=== PATIENT | male | born 1955 | race Caucasian/White ===

== ENCOUNTER 2023-02-11 11:58 | Day surgery (SDC) | payer BC, MEDICARE ==
[2023-02-08 10:31] LABS: BASOPHILS # (AUTO) 0.1 X10'3 (0-0.2); BASOPHILS % (AUTO) 0.5 % (0-1); EOSINOPHILS # (AUTO) 0.1 X10'3 (0-0.9); EOSINOPHILS % (AUTO) 0.9 % (0-6); HEMATOCRIT 42.8 % (42.0-52.0); HEMOGLOBIN 14.5 g/dl (14.0-17.9); LYMPHOCYTES # (AUTO) 1.2 X10'3 (1.1-4.8); MEAN CORPUSCULAR HEMOGLOBIN 32.1 PG (27.0-31.0); MEAN CORPUSCULAR VOLUME 94.6 FL (78-98); MEAN PLATELET VOLUME 10.2 FL (7.4-10.4); MONOCYTES # (AUTO) 0.9 X10'3 (0-0.9); MONOCYTES % (AUTO) 9.9 % (2-12); NEUTROPHILS # (AUTO) 7.1 X10'3 (1.8-7.7); NEUTROPHILS % (AUTO) 75.7 % (42-75); PLATELET COUNT 213 X10'3 (140-440); RED BLOOD COUNT 4.52 X10'6 (4.70-6.10); RED CELL DISTRIBUTION WIDTH 13.1 % (11.5-14.5); WHITE BLOOD COUNT 9.3 X10'3 (4.5-11.0)
[2023-02-08 10:36] LABS: ALBUMIN 3.6 G/DL (3.4-5.0); ANION GAP 7 (8-16); BLOOD UREA NITROGEN 17 MG/DL (7-18); CALCIUM 8.6 MG/DL (8.5-10.1); CHLORIDE 106 MMOL/L (99-107); GLUCOSE 104 MG/DL (70-104); POTASSIUM 4.1 MMOL/L (3.5-5.1); SODIUM 139 MMOL/L (135-145); TOTAL CARBON DIOXIDE 26.5 MMOL/L (24-32); eGFR 75 ML/MIN
[2023-02-08 10:41] LABS: APTT 31 SECONDS (22-32)
[2023-02-11] VITALS (11 sets, daily range): BP systolic 131–163; BP diastolic 71–90
[~2023-02-11] VITALS: Ht 170.2 cm; Wt 86.4 kg
[~2023-02-11 11:58] MED LIST: APIX5TAB3 PO; ASPI81TA53 PO; ATOR40TA71 PO; CEPH-585 PO; LISI10TA27 PO; METO-384 PO; NITR0.4T51 SL; TICA90TA PO
[2023-02-11] MEDS ORDERED: diphenhydrAMINE 25mg capsule PO PRN (12:15)
[2023-02-11] MEDS ORDERED: normal saline 1,000 ML IV SCH (12:15)
[2023-02-11] MEDS ORDERED: LORazepam 0.5 MG tablet PO PRN (12:15)
[2023-02-11] MEDS ORDERED: nitroGLYCERIN-Tridil 50MG/D5W 250 ML IV ONE (13:22)
[2023-02-11] MEDS ORDERED: LIDOcaine 1% (10mg/ml) 2ml vial ONE (13:22)
[2023-02-11] MEDS ORDERED: verapamil 2.5 mg/ml inj IV ONE (13:22)
[2023-02-11] MEDS ORDERED: midazolam 1 mg/ML 2ml injection ONE (13:23)
[2023-02-11] MEDS ORDERED: iohexol 350MG/ML 100ml bottle IV ONE ×2 (13:23→14:41)
[2023-02-11] MEDS ORDERED: heparin 1,000unit/ml 10ml vial 10 ML ONE (13:23)
[2023-02-11] MEDS ORDERED: fentaNYL/PF 50MCG/1 ML 2ML syringe ONE (13:23)
[2023-02-11] MEDS ORDERED: iohexol 350 MG/ML 50ML vial IV ONE (13:23)
[2023-02-11] MEDS ORDERED: APIX5TAB3 PO (13:42)
[2023-02-11] MEDS ORDERED: TICA90TA PO (13:42)
[2023-02-11] MEDS ORDERED: NITR0.4T51 SL (13:42)
[2023-02-11] MEDS ORDERED: LISI10TA27 PO (13:42)
[2023-02-11] MEDS ORDERED: ATOR40TA PO (13:42)
[2023-02-11] MEDS ORDERED: METO-384 PO (13:42)
[2023-02-11] MEDS ORDERED: ASPI-611 PO (13:42)
[2023-02-11] MEDS ORDERED: heparin 25,000 UNIT/250ml bag 250 ML IV ONE (14:27)
[2023-02-11] MEDS ORDERED: ticagrelor 90mg tablet ONE (15:39)
--- NOTE | 2023-02-11 16:45 | NUR ---
Pt ambulated to bathroom to void and then back to [facility].
--- NOTE | 2023-02-11 19:50 | NUR ---
Pt ambulated to bathroom to void then back to [facility].
== END 2023-02-11 20:20 | disposition home or self-care (01) ==
LOC: SSTAY O 11:58
PROVIDERS: ATTEND Internal Medicine Cardiovascular Disease
DX: I25.10 Atherosclerotic heart disease of native coronary artery without angina pectoris (principal); I10 Essential (primary) hypertension; E78.5 Hyperlipidemia, unspecified; I25.2 Old myocardial infarction; I48.0 Paroxysmal atrial fibrillation; Z79.82 Long term (current) use of aspirin; Z79.01 Long term (current) use of anticoagulants; Z79.899 Other long term (current) drug therapy; Z95.5 Presence of coronary angioplasty implant and graft; Z82.49 Family history of ischemic heart disease and other diseases of the circulatory system
CPT/HCPCS: 36415; 76937; 80048; 85025; 85347; 85610; 85730; 92920; 93005; 93458; 99152; 99153; A6258; C1725; C1751; C1769; C1874; C9600; J1644; J2250; J3010; J3490; J7030; Q9967; A6402; C1894

== ENCOUNTER 2023-09-19 08:59 | Day surgery (SDC) | payer BC, MEDICARE ==
[2023-09-18 11:25] LABS: BASOPHILS % (AUTO) 0.5 % (0-1); EOSINOPHILS # (AUTO) 0.1 X10'3 (0-0.9); EOSINOPHILS % (AUTO) 1.2 % (0-6); HEMATOCRIT 45.3 % (42.0-52.0); HEMOGLOBIN 15.2 g/dl (14.0-17.9); LYMPHOCYTES # (AUTO) 1.4 X10'3 (1.1-4.8); LYMPHOCYTES % (AUTO) 15.2 % (21-51); MEAN CORPUSCULAR HEMOGLOBIN 32.4 PG (27.0-31.0); MEAN CORPUSCULAR HGB CONC 33.6 g/dL (33.0-36.5); MEAN CORPUSCULAR VOLUME 96.4 FL (78-98); MEAN PLATELET VOLUME 11.3 FL (7.4-10.4); MONOCYTES % (AUTO) 11.3 % (2-12); NEUTROPHILS # (AUTO) 6.6 X10'3 (1.8-7.7); NEUTROPHILS % (AUTO) 71.8 % (42-75); PLATELET COUNT 166 X10'3 (140-440); RED CELL DISTRIBUTION WIDTH 13.8 % (11.5-14.5); WHITE BLOOD COUNT 9.2 X10'3 (4.5-11.0)
[2023-09-18 11:30] LABS: ALBUMIN 3.7 G/DL (3.4-5.0); ANION GAP 4 (8-16); BLOOD UREA NITROGEN 15 MG/DL (7-18); CALCIUM 8.9 MG/DL (8.5-10.1); CHLORIDE 106 MMOL/L (99-107); GLUCOSE 107 MG/DL (70-104); POTASSIUM 4.5 MMOL/L (3.5-5.1); SODIUM 136 MMOL/L (135-145); TOTAL CARBON DIOXIDE 25.7 MMOL/L (24-32); eGFR 74 ML/MIN
[2023-09-18 11:35] LABS: APTT 27 SECONDS (22-32); PROTHROMBIN TIME 10.5 SECONDS (9.0-12.0)
[2023-09-18 14:42] LABS: LARGE PLATELETS FEW; PLATELET ESTIMATE NORMAL
[2023-09-19] VITALS (15 sets, daily range): BP systolic 111–154; BP diastolic 66–103; PULSE 60–69; RESP 11–22; TEMP 97.7; O2SAT 92–97
[~2023-09-19] VITALS: Ht 170.2 cm; Wt 88.4 kg
[~2023-09-19 08:59] MED LIST changes: +ASPI-611 PO; -ASPI81TA53 PO; +ATOR40TA PO; -ATOR40TA71 PO; -CEPH-585 PO
[2023-09-19] MEDS ORDERED: LORazepam 0.5 MG tablet PO PRN (09:20)
[2023-09-19] MEDS ORDERED: diphenhydrAMINE 25mg capsule PO PRN (09:20)
[2023-09-19] MEDS ORDERED: normal saline 1,000 ML IV SCH (09:20)
[2023-09-19] MEDS ORDERED: iohexol 350 MG/ML 50ML vial IV ONE (09:24)
[2023-09-19] MEDS ORDERED: midazolam 1 mg/ML 2ml injection ONE (09:24)
[2023-09-19] MEDS ORDERED: iohexol 350MG/ML 100ml bottle IV ONE ×2 (09:24→11:12)
[2023-09-19] MEDS ORDERED: LIDOcaine 1% 30ml preserv. free vial ONE (09:24)
[2023-09-19] MEDS ORDERED: fentaNYL/PF 50MCG/1 ML 2ML syringe ONE (09:24)
[2023-09-19] MEDS ORDERED: heparin 1,000unit/ml 10ml vial 10 ML ONE (09:24)
[2023-09-19] MEDS ORDERED: nitroGLYCERIN 500mcg/5mL D5W 5 ML IV ONE (09:25)
[2023-09-19] MEDS ORDERED: ISOS60TA71 PO (09:51)
[2023-09-19] MEDS ORDERED: METO-384 PO (09:51)
[2023-09-19] MEDS ORDERED: heparin 25,000 UNIT/250ml bag 0 ML IV ONE (10:57)
[2023-09-19] MEDS ORDERED: normal saline 1000ml 1,000 ML IV SCH (12:10)
[2023-09-19] MEDS ORDERED: HYDROcodone/acetaminophen 5mg/325mg tablet PO PRN (12:10)
[2023-09-19] MEDS ORDERED: nitroGLYCERIN 0.4mg SUBLingual tab SL PRN (12:10)
[2023-09-19] MEDS ORDERED: HYDROcodone/acetaminophen 10/325mg tab PO PRN (12:10)
[2023-09-19] MEDS ORDERED: ticagrelor 90mg tablet PO SCH (20:00)
[2023-09-20] MEDS ORDERED: isosorbide mononitrate 30mg tab.SR.24H PO SCH (08:00)
[2023-09-20] MEDS ORDERED: atorvastatin 20mg tablet PO SCH (08:00)
[2023-09-20] MEDS ORDERED: aspirin 81mg, enteric-coated 1 TAB TABLET.DR PO SCH (08:00)
[2023-09-20] MEDS ORDERED: metoprolol succinate 25mg (24-HOUR) SR. Tablet PO SCH (08:00)
[2023-09-20] MEDS ORDERED: lisinopril 5mg tablet PO SCH (08:00)
== END 2023-09-19 16:35 | disposition home or self-care (01) ==
LOC: RAD 08:59 → SSTAY O 16:35
PROVIDERS: ATTEND Internal Medicine Cardiovascular Disease
DX: I25.10 Atherosclerotic heart disease of native coronary artery without angina pectoris (principal); I10 Essential (primary) hypertension; E78.5 Hyperlipidemia, unspecified; I25.2 Old myocardial infarction; I48.0 Paroxysmal atrial fibrillation; Z79.899 Other long term (current) drug therapy; Z79.82 Long term (current) use of aspirin; Z95.5 Presence of coronary angioplasty implant and graft; Z82.49 Family history of ischemic heart disease and other diseases of the circulatory system
CPT/HCPCS: 36415; 76937; 80048; 85025; 85610; 85730; 93005; 93459; 99152; 99153; J1644; J2250; J3010; J3490; J7030; Q0163; Q9967; 85008; 93458; A6258; C1725; C1760

== ENCOUNTER 2023-10-14 05:34 | Inpatient (IN) | payer BC, MEDICARE ==
[2023-10-07 14:40] LABS: BASOPHILS % (AUTO) 0.4 % (0-1); EOSINOPHILS # (AUTO) 0.1 X10'3 (0-0.9); EOSINOPHILS % (AUTO) 1.2 % (0-6); LYMPHOCYTES # (AUTO) 1.5 X10'3 (1.1-4.8); LYMPHOCYTES % (AUTO) 14.9 % (21-51); MEAN CORPUSCULAR HEMOGLOBIN 32.2 PG (27.0-31.0); MEAN CORPUSCULAR HGB CONC 33.4 g/dL (33.0-36.5); MEAN CORPUSCULAR VOLUME 96.4 FL (78-98); MEAN PLATELET VOLUME 11.2 FL (7.4-10.4); MONOCYTES % (AUTO) 9.8 % (2-12); NEUTROPHILS # (AUTO) 7.3 X10'3 (1.8-7.7); NEUTROPHILS % (AUTO) 73.7 % (42-75); PRE OP HEMATOCRIT 46.9 % (42.0-52.0); PRE OP HEMOGLOBIN 15.7 g/dL (14.0-17.9); PRE OP PLATELET COUNT 178 X10'3 (140-440); PRE OP WHITE BLOOD COUNT 9.9 10'3 (4.8-10.8); RED BLOOD COUNT 4.86 X10'6 (4.70-6.10); RED CELL DISTRIBUTION WIDTH 13.6 % (11.5-14.5)
[2023-10-07 14:44] LABS: BILIRUBIN,URINE NEGATIVE (Neg); CLARITY,URINE CLEAR (Clear); COLOR,URINE YELLOW (Yellow); GLUCOSE, URINE NEGATIVE (Neg); KETONES,URINE NEGATIVE (Neg); LEUKOCYTE ESTERASE ,URINE TRACE (Neg); NITRITES, URINE NEGATIVE (Neg); OCCULT BLOOD,URINE NEGATIVE (Neg); PH,URINE 5.5 (4.8-8.0); PROTEIN,URINE NEGATIVE (Neg); UROBILINOGEN,URINE 0.2 E.U/dL (0.2-1.0)
[2023-10-07 14:51] LABS: UA COLLECTION TYPE VOIDED
[2023-10-07 14:51] LABS: HEMOGLOBIN A1C 5.2 % (4.5-6.2)
[2023-10-07 14:56] LABS: RBC,URINE 0-2 /HPF (0-2)
[2023-10-07 14:57] LABS: BACTERIA,URINE FEW /HPF (Neg); MUCUS STRANDS MODERATE /LPF (Neg); SQUAMOUS EPITHELIAL CELL,UR FEW /LPF (FEW)
[2023-10-07 15:03] LABS: PRE OP PROTIME 10.7 SECONDS (9.0-12.0)
[2023-10-07 15:04] LABS: ALBUMIN 3.8 G/DL (3.4-5.0); ALBUMIN/GLOBULIN RATIO 1.1 (1.1-1.5); ALKALINE PHOSPHATASE 89 IU/L (46-116); BLOOD UREA NITROGEN 17 MG/DL (7-18); BUN/CREATININE RATIO 15.5 (10.0-20.0); CALCIUM 8.9 MG/DL (8.5-10.1); CHLORIDE 104 MMOL/L (99-107); PRE OP ALT 47 U/L (30-65); PRE OP ANION GAP 5 (8-16); PRE OP AST 22 U/L (10-37); PRE OP GLUCOSE 102 MG/DL (70-104); PRE OP POTASSIUM 4.1 MMOL/L (3.4-5.1); PRE OP SODIUM 135 MMOL/L (135-145); TOTAL CARBON DIOXIDE 25.7 MMOL/L (24-32); TOTAL PROTEIN 7.2 G/DL (6.4-8.2); eGFR 67 ML/MIN
[2023-10-07 15:23] LABS: ABG HCO3 20.2 mmol/L (22.0-26.0); ABG OXYGEN SATURATION 97.6 % (94-97); ABG PCO2 (T) 28.6 mmHg (35.0-48.0); ABG PH (T) 7.467 (7.340-7.440); ABG PO2 (T) 91.5 mmHg (75.0-100.0); ALLEN'S TEST POSITIVE; FCOHb 0.3 % (0.0-3.9); FHHb 2.4 % (0.0-5.0); FMetHb 0.3 % (0.0-1.5); PATIENT TEMPERATURE 36.9; TOTAL HEMOGLOBIN 16.5 G/dl (14.0-17.9)
[2023-10-14] VITALS (19 sets, daily range): BP systolic 102–153; BP diastolic 49–90; PULSE 54–84; RESP 14–30; TEMP 98.4; O2SAT 93–97
[~2023-10-14] VITALS: Ht 170.2 cm; Wt 87.9 kg
[~2023-10-14 05:34] MED LIST changes: -APIX5TAB3 PO; +DOCUMENT DATE & TIME OF BETA-BLOCKER PO ONE; +ISOS60TA71 PO; +Insulin Reg/NS 100units/100mL 100 ML IV SCH; +LORazepam 2 mg/ml vial IV ONE; +UBID100C16 PO; +cefazolin 2gm/D5W 100mL 100 ML IV ONE; +dextrose 50%-water 50ml dispensing syringe IV PRN; +famotidine 20mg tablet PO ONE; +insulin Lispro (HumaLOG) vial - multi-dose SQ PRN; +metoprolol tartrate 12.5mg (1/2 tablet) PO ONE; +mupirocin 2% nasal ointment 1gm UD NS ONE; +ringers solution, lacted 1,000 ML IV SCH; +vancomycin 1,500 MG in NS 300ml IV soln IV ONE
[2023-10-14] MEDS ORDERED: heparin 10,000 units/1 ML INJ ONE ×2 (06:23→12:00)
[2023-10-14] MEDS ORDERED: ceFAZolin 1000mg inj ONE (06:23)
[2023-10-14] MEDS ORDERED: BUPIVAcaine 2.5mg/ml inj 50ml vial (contains preservative) ONE (06:23)
[2023-10-14] MEDS ORDERED: epiNEPHrine 1 mg/ml inj ONE (06:28)
[2023-10-14] MEDS ORDERED: BUPIVAcaine 0.5% inj/PF 30 ML ONE ×2 (06:50→09:26)
[2023-10-14] MEDS ORDERED: rocuronium 10mg/ml inj IV ONE ×3 (07:46→07:51)
[2023-10-14] MEDS ORDERED: propofol inj 20 ML IV ONE (07:46)
[2023-10-14] MEDS ORDERED: SUfentanil 50mcg/ml 1ml amp IV ONE (07:46)
[2023-10-14] MEDS ORDERED: MIDAZolam 1 MG/ML 5ML VIAL ONE (07:46)
[2023-10-14] MEDS ORDERED: protamine sulf. 10mg/ml inj. IV ONE (07:51)
[2023-10-14] MEDS ORDERED: nitroGLYCERIN in D5W 50mg/250ml (Tridil) infusion IV ONE (07:51)
[2023-10-14] MEDS ORDERED: aminocaproic acid 250 MG/1 ML inj. ONE ×2 (07:51→12:00)
[2023-10-14] MEDS ORDERED: sevoflurane 250ml liquid IH ONE (07:51)
[2023-10-14] MEDS ORDERED: BUPIVAcaine 0.5% inj/PF 30 ml vial IJ ONE (08:00)
[2023-10-14] MEDS ORDERED: heparin 10,000 units/1 ML INJ IR ONE (08:00)
[2023-10-14] MEDS ORDERED: ceFAZolin 1000mg inj IR ONE (08:00)
[2023-10-14] MEDS ORDERED: epiNEPHrine 1 mg/ml inj IV ONE (08:00)
[2023-10-14] MEDS ORDERED: papaverine 30 mg/ml 2ml inj. ICAR ONE (08:00)
[2023-10-14 08:51] LABS: ABG BASE EXCESS -1.2 mmol/L (-2.0-2.0); ABG HCO3 23.2 mmol/L (22.0-26.0); ABG OXYGEN SATURATION 99.2 % (94-97); ABG PCO2 37.8 mmHg (35.0-48.0); ABG PH 7.405 (7.340-7.440); ABG PO2 202.1 mmHg (75.0-100.0); CL (ABG) 105 mmol/L (99-107); FHHb 0.8 % (0.0-5.0); FO2Hb 99.2 % (94-97); GLUCOSE (ABG) 129 mg/dl (70-104); IONIZED CA (ABG) 1.13 mmol/L (1.10-1.30); K (ABG) 4.1 mmol/L (3.5-5.1); TOTAL HEMOGLOBIN 14.4 G/dl (14.0-17.9)
[2023-10-14 09:37] LABS: ACT @ 1.70 U 275 SEC (193-297); ACT @ 2.84 U 418 SEC (260-420); BASELINE ACT 160 SEC (101-148); PATIENT WEIGHT 90.0k KG
[2023-10-14 10:16] LABS: ABG BASE EXCESS -1.3 mmol/L (-2.0-2.0); ABG OXYGEN SATURATION 99.4 % (94-97); ABG PCO2 36.8 mmHg (35.0-48.0); ABG PH 7.413 (7.340-7.440); ABG PO2 349.3 mmHg (75.0-100.0); CL (ABG) 101 mmol/L (99-107); FCOHb 0.3 % (0.0-3.9); FHHb 0.6 % (0.0-5.0); FMetHb 0.3 % (0.0-1.5); FO2Hb 98.8 % (94-97); GLUCOSE (ABG) 108 mg/dl (70-104); IONIZED CA (ABG) 0.97 mmol/L (1.10-1.30); TOTAL HEMOGLOBIN 10.9 G/dl (14.0-17.9)
[2023-10-14 10:36] LABS: ABG BASE EXCESS VENOUS -2.4 mmol/L (-2.0 - 2.0); ABG HCO3 VENOUS 23.1 mmol/L (21.0-28.0); ABG OXYGEN SATURATION VENOUS 86.9 % (75 - 99 %); ABG PCO2 VENOUS 42.8 mmHg (41.0-54.0); ABG PO2 VENOUS 50.7 mmHg (25.0-35.0); CL (ABG) 102 mmol/L (99-107); FCOHb VENOUS 0.3 %; FMetHb VENOUS 0.3 % (0.0 - 0.5); FO2Hb VENOUS 86.4 %; GLUCOSE (ABG) 118 mg/dl (70-104); IONIZED CA (ABG) 1.03 mmol/L (1.10-1.30); K (ABG) 4.2 mmol/L (3.5-5.1); TOTAL HEMOGLOBIN 11.4 G/dl (14.0-17.9)
[2023-10-14 10:52] LABS: ABG BASE EXCESS 0.3 mmol/L (-2.0-2.0); ABG HCO3 24.6 mmol/L (22.0-26.0); ABG OXYGEN SATURATION 99.2 % (94-97); ABG PCO2 38.1 mmHg (35.0-48.0); ABG PH 7.427 (7.340-7.440); ABG PO2 314.4 mmHg (75.0-100.0); CL (ABG) 102 mmol/L (99-107); FCOHb 0.3 % (0.0-3.9); FHHb 0.8 % (0.0-5.0); FMetHb 0.3 % (0.0-1.5); FO2Hb 98.6 % (94-97); GLUCOSE (ABG) 118 mg/dl (70-104); IONIZED CA (ABG) 1.48 mmol/L (1.10-1.30); TOTAL HEMOGLOBIN 10.7 G/dl (14.0-17.9)
[2023-10-14 11:07] LABS: ABG BASE EXCESS VENOUS -1.4 mmol/L (-2.0 - 2.0); ABG HCO3 VENOUS 23.7 mmol/L (21.0-28.0); ABG OXYGEN SATURATION VENOUS 71.5 % (75 - 99 %); ABG PCO2 VENOUS 41.2 mmHg (41.0-54.0); ABG PH (VENOUS) 7.378 (7.310-7.450); CL (ABG) 101 mmol/L (99-107); FCOHb VENOUS 0.3 %; FHHb VENOUS 28.3 %; FMetHb VENOUS 0.3 % (0.0 - 0.5); FO2Hb VENOUS 71.1 %; GLUCOSE (ABG) 108 mg/dl (70-104); K (ABG) 4.1 mmol/L (3.5-5.1); TOTAL HEMOGLOBIN 10.8 G/dl (14.0-17.9)
[2023-10-14] MEDS ORDERED: magnesium 2GM in 50ml NS 50 ML IV PRN (11:25)
[2023-10-14] MEDS ORDERED: sodium phosphate inj. 30 MMOL in dextrose 5%-water 250 ML IV PRN (11:25)
[2023-10-14] MEDS ORDERED: potassium CL 10mEq/100ml bag 100 ML IV PRN (11:25)
[2023-10-14] MEDS: Insulin Reg/NS 100units/100mL 100 ML IV SCH (11:25)
[2023-10-14] MEDS ORDERED: sodium phosphate inj. 15 MMOL in dextrose 5%-water 250 ML IV PRN (11:25)
[2023-10-14] MEDS ORDERED: potassium Cl 40MEQ/270ML bag 250 ML IV PRN (11:25)
[2023-10-14] MEDS ORDERED: magnesium 4gm in 100ml NS 100 ML IV PRN (11:25)
[2023-10-14] MEDS ORDERED: Neutra Phos packet PO PRN (11:25)
[2023-10-14] MEDS ORDERED: morphine 2 MG/ML inj. syringe IV PRN (11:25)
[2023-10-14] MEDS ORDERED: potassium Cl 40MEQ/1/2NS 520ml 520 ML IV PRN (11:25)
[2023-10-14] MEDS ORDERED: insulin glargine (Lantus) pen - multi-dose SQ PRN (11:25)
[2023-10-14] MEDS ORDERED: bisacodyl 10mg suppository rectal RC PRN (11:25)
[2023-10-14] MEDS ORDERED: dextrose 50%-water 50ml dispensing syringe IV PRN (11:25)
[2023-10-14] MEDS ORDERED: sodium chloride 0.45% 1,000 ML IV SCH (11:25)
[2023-10-14] MEDS ORDERED: mineral oil 133ml enema RC PRN (11:25)
[2023-10-14] MEDS ORDERED: nitroGLYCERIN-Tridil 50MG/D5W 250 ML IV SCH (11:25)
[2023-10-14] MEDS ORDERED: magnesium hydroxide 30ml (MOM) UD suspension PO PRN (11:25)
[2023-10-14] MEDS ORDERED: niCARDipine-NS 40mg/200ml IVPB 200 ML IV PRN (11:25)
[2023-10-14] MEDS ORDERED: albumin (Human) 5% 250ml 250 ML IV PRN (11:25)
[2023-10-14] MEDS ORDERED: potassium Cl 20 mEq SR tablet PO PRN (11:25)
[2023-10-14] MEDS ORDERED: metoclopramide 5 mg/ml inj IV PRN (11:25)
[2023-10-14] MEDS ORDERED: acetaminophen 325mg tablet PO PRN ×2 (11:25)
[2023-10-14] MEDS ORDERED: mannitol 12.5gm/50mL VIAL IV ONE (12:00)
[2023-10-14] MEDS ORDERED: albumin (human) 25% 100 ML IV solution IV ONE (12:00)
[2023-10-14] MEDS ORDERED: LIDOcaine 2% 10ml TOPICAL JELLY (Urojet) ONE (12:00)
[2023-10-14] MEDS ORDERED: methylPREDNISolone sod. succ. 500mg inj ONE (12:00)
[2023-10-14] MEDS ORDERED: magnesium 1 GM/2 ML inj ONE (12:00)
[2023-10-14] MEDS ORDERED: sodium bicarbonate 1 mEq/ml 50ml vial IV ONE (12:00)
[2023-10-14] MEDS ORDERED: heparin 1,000 units/ml 10ml inj ONE (12:00)
[2023-10-14 12:15] LABS: ABG BASE EXCESS 1.1 mmol/L (-2.0-2.0); ABG HCO3 26.8 mmol/L (22.0-26.0); ABG OXYGEN SATURATION 97.8 % (94-97); ABG PH (T) 7.381 (7.340-7.440); ABG PO2 (T) 96.4 mmHg (75.0-100.0); FCOHb 0.5 % (0.0-3.9); FHHb 2.2 % (0.0-5.0); FO2Hb 97.3 % (94-97); MODE VENT - SIMV; PATIENT TEMPERATURE 36.5; PEEP 5 cm H2O; RESPIRATORY RATE 14 b/min; TIDAL VOLUME 500 mL; TOTAL HEMOGLOBIN 13.5 G/dl (14.0-17.9)
[2023-10-14 12:36] LABS: BASOPHILS % (AUTO) 0.2 % (0-1); EOSINOPHILS # (AUTO) 0.1 X10'3 (0-0.9); EOSINOPHILS % (AUTO) 0.4 % (0-6); HEMATOCRIT 37.8 % (42.0-52.0); HEMOGLOBIN 12.7 g/dl (14.0-17.9); LYMPHOCYTES % (AUTO) 6.6 % (21-51); MEAN CORPUSCULAR HEMOGLOBIN 32.2 PG (27.0-31.0); MEAN CORPUSCULAR HGB CONC 33.7 g/dL (33.0-36.5); MEAN CORPUSCULAR VOLUME 95.5 FL (78-98); MEAN PLATELET VOLUME 10.9 FL (7.4-10.4); MONOCYTES # (AUTO) 0.8 X10'3 (0-0.9); MONOCYTES % (AUTO) 5.5 % (2-12); NEUTROPHILS # (AUTO) 12.9 X10'3 (1.8-7.7); NEUTROPHILS % (AUTO) 87.3 % (42-75); PLATELET COUNT 95 X10'3 (140-440); RED BLOOD COUNT 3.95 X10'6 (4.70-6.10); RED CELL DISTRIBUTION WIDTH 13.3 % (11.5-14.5); WHITE BLOOD COUNT 14.8 X10'3 (4.5-11.0)
[2023-10-14 12:49] LABS: APTT 29 SECONDS (22-32); INR 1.2 INR; PROTHROMBIN TIME 12.8 SECONDS (9.0-12.0)
[2023-10-14 12:56] LABS: ALANINE AMINOTRANSFERASE 30 U/L (12-78); ALBUMIN 3.1 G/DL (3.4-5.0); ALBUMIN/GLOBULIN RATIO 1.5 (1.1-1.5); ALKALINE PHOSPHATASE 53 IU/L (46-116); ANION GAP 9 (8-16); ASPARTATE AMINO TRANSFERASE 22 U/L (10-37); BILIRUBIN,TOTAL 1.3 MG/DL (0.1-1.0); BLOOD UREA NITROGEN 14 MG/DL (7-18); BUN/CREATININE RATIO 15.9 (10.0-20.0); CALCIUM 8.1 MG/DL (8.5-10.1); CHLORIDE 106 MMOL/L (99-107); CREATININE 0.88 MG/DL (0.60-1.10); GLUCOSE 134 MG/DL (70-104); MAGNESIUM 2.7 MG/DL (1.5-2.4); PHOSPHORUS 2.8 MG/DL (2.3-4.5); SODIUM 139 MMOL/L (135-145); TOTAL CARBON DIOXIDE 23.6 MMOL/L (24-32); TOTAL PROTEIN 5.2 G/DL (6.4-8.2); eCRCL 75 ML/MIN; eGFR 86 ML/MIN
[2023-10-14] MEDS: potassium Cl 20mEq/100mL bag 100 ML IV PRN ×4 (13:15→22:08)
[2023-10-14 14:36] LABS: ABG BASE EXCESS -5.8 mmol/L (-2.0-2.0); ABG HCO3 18.5 mmol/L (22.0-26.0); ABG OXYGEN SATURATION 94.8 % (94-97); ABG PCO2 (T) 32.4 mmHg (35.0-48.0); ABG PH (T) 7.372 (7.340-7.440); ABG PO2 (T) 71.1 mmHg (75.0-100.0); FCOHb 0.5 % (0.0-3.9); FHHb 5.2 % (0.0-5.0); FMetHb 0.3 % (0.0-1.5); MODE VENT - SIMV; PATIENT TEMPERATURE 36.7; PEEP 5 cm H2O; TOTAL HEMOGLOBIN 13.6 G/dl (14.0-17.9)
[2023-10-14] MEDS: ceFAZolin/D5W- 1GM premix 50 ML IV SCH (15:58)
[2023-10-14] MEDS: LIDOcaine 5% patch TP SCH (16:00)
[2023-10-14] MEDS: ketorolac tromethamine 15mg/ml inj. IV SCH ×2 (16:12→20:09)
[2023-10-14 18:14] LABS: BASOPHILS % (AUTO) 0.1 % (0-1); EOSINOPHILS % (AUTO) 0 % (0-6); HEMATOCRIT 39.3 % (42.0-52.0); HEMOGLOBIN 13.1 g/dl (14.0-17.9); LYMPHOCYTES # (AUTO) 0.3 X10'3 (1.1-4.8); LYMPHOCYTES % (AUTO) 1.4 % (21-51); MEAN CORPUSCULAR HEMOGLOBIN 32.1 PG (27.0-31.0); MEAN CORPUSCULAR HGB CONC 33.4 g/dL (33.0-36.5); MEAN CORPUSCULAR VOLUME 96.1 FL (78-98); MEAN PLATELET VOLUME 11.5 FL (7.4-10.4); MONOCYTES # (AUTO) 1.1 X10'3 (0-0.9); MONOCYTES % (AUTO) 5.1 % (2-12); NEUTROPHILS # (AUTO) 20.6 X10'3 (1.8-7.7); NEUTROPHILS % (AUTO) 93.4 % (42-75); PLATELET COUNT 126 X10'3 (140-440); RED BLOOD COUNT 4.09 X10'6 (4.70-6.10); RED CELL DISTRIBUTION WIDTH 13.6 % (11.5-14.5); WHITE BLOOD COUNT 22.1 X10'3 (4.5-11.0)
[2023-10-14 18:21] LABS: ALBUMIN 3.4 G/DL (3.4-5.0); ANION GAP 13 (8-16); BLOOD UREA NITROGEN 17 MG/DL (7-18); BUN/CREATININE RATIO 11.8 (10.0-20.0); CHLORIDE 105 MMOL/L (99-107); CREATININE 1.44 MG/DL (0.60-1.10); GLUCOSE 147 MG/DL (70-104); MAGNESIUM 2.3 MG/DL (1.5-2.4); PHOSPHORUS 1.7 MG/DL (2.3-4.5); SODIUM 139 MMOL/L (135-145); TOTAL CARBON DIOXIDE 20.7 MMOL/L (24-32); eCRCL 46 ML/MIN; eGFR 49 ML/MIN
[2023-10-14 18:23] LABS: POTASSIUM 3.7 MMOL/L (3.5-5.1)
[2023-10-14] MEDS: HYDROcodone/acetaminophen 10/325mg tab PO PRN ×2 (19:08→19:41)
[2023-10-14] MEDS ORDERED: ketorolac tromethamine 15mg/ml inj. IV SCH (20:00)
[2023-10-14] MEDS: atorvastatin 10mg tablet PO SCH (20:09)
[2023-10-14] MEDS: vancomycin/NS 1 GM ADD-VANTAGE 250 ML IV SCH (20:09)
[2023-10-14] MEDS: sennosides/docusate sodium tablet PO SCH (20:09)
[2023-10-14] MEDS: mupirocin 2% nasal ointment 1gm UD NS SCH (20:09)
[2023-10-14 21:08] LABS: PLATELET ESTIMATE DECREASED
[2023-10-14 21:09] LABS: LARGE PLATELETS FEW
[2023-10-14] MEDS: morphine 4 MG/ML inj SYRINge IV PRN (22:07)
[2023-10-14] MEDS: ondansetron/PF 4mg/2ml inj IV PRN (22:15)
[2023-10-15] VITALS (26 sets, daily range): BP systolic 115–151; BP diastolic 52–76; PULSE 74–91; RESP 9–26; O2SAT 90–96
[2023-10-15] MEDS: ketorolac tromethamine 15mg/ml inj. IV SCH ×2 (02:32→07:20)
[2023-10-15 02:51] LABS: BASOPHILS % (AUTO) 0.2 % (0-1); EOSINOPHILS % (AUTO) 0 % (0-6); HEMATOCRIT 37.7 % (42.0-52.0); HEMOGLOBIN 12.6 g/dl (14.0-17.9); LYMPHOCYTES # (AUTO) 0.4 X10'3 (1.1-4.8); LYMPHOCYTES % (AUTO) 1.6 % (21-51); MEAN CORPUSCULAR HGB CONC 33.5 g/dL (33.0-36.5); MEAN CORPUSCULAR VOLUME 95.5 FL (78-98); MEAN PLATELET VOLUME 11.9 FL (7.4-10.4); MONOCYTES # (AUTO) 1.4 X10'3 (0-0.9); MONOCYTES % (AUTO) 5.7 % (2-12); NEUTROPHILS # (AUTO) 23.4 X10'3 (1.8-7.7); NEUTROPHILS % (AUTO) 92.5 % (42-75); PLATELET COUNT 119 X10'3 (140-440); RED BLOOD COUNT 3.95 X10'6 (4.70-6.10); RED CELL DISTRIBUTION WIDTH 13.7 % (11.5-14.5)
[2023-10-15 02:59] LABS: WHITE BLOOD COUNT 25.3 X10'3 (4.5-11.0)
[2023-10-15 03:00] LABS: ALANINE AMINOTRANSFERASE 37 U/L (12-78); ALBUMIN 3.5 G/DL (3.4-5.0); ALBUMIN/GLOBULIN RATIO 1.4 (1.1-1.5); ALKALINE PHOSPHATASE 53 IU/L (46-116); ANION GAP 12 (8-16); ASPARTATE AMINO TRANSFERASE 106 U/L (10-37); BILIRUBIN,TOTAL 1.1 MG/DL (0.1-1.0); BLOOD UREA NITROGEN 19 MG/DL (7-18); BUN/CREATININE RATIO 16.4 (10.0-20.0); CALCIUM 8.1 MG/DL (8.5-10.1); CHLORIDE 105 MMOL/L (99-107); CREATININE 1.16 MG/DL (0.60-1.10); GLUCOSE 136 MG/DL (70-104); MAGNESIUM 2.8 MG/DL (1.5-2.4); PHOSPHORUS 2.9 MG/DL (2.3-4.5); POTASSIUM 4.3 MMOL/L (3.5-5.1); SODIUM 139 MMOL/L (135-145); TOTAL CARBON DIOXIDE 22.2 MMOL/L (24-32); eCRCL 57 ML/MIN; eGFR 63 ML/MIN
[2023-10-15] MEDS: Insulin Reg/NS 100units/100mL 100 ML IV SCH (04:19)
[2023-10-15] MEDS: HYDROcodone/acetaminophen 10/325mg tab PO PRN ×3 (05:14→14:45)
[2023-10-15] MEDS: morphine 4 MG/ML inj SYRINge IV PRN (05:14)
[2023-10-15] MEDS: mupirocin 2% nasal ointment 1gm UD NS SCH ×2 (07:20→20:21)
[2023-10-15] MEDS: metoprolol tartrate 12.5mg (1/2 tablet) PO SCH ×2 (07:21→20:21)
[2023-10-15] MEDS: ceFAZolin/D5W- 1GM premix 50 ML IV SCH ×3 (07:21→16:20)
[2023-10-15] MEDS: sennosides/docusate sodium tablet PO SCH ×2 (07:21→20:20)
[2023-10-15] MEDS: aspirin 81mg tab.chew PO SCH (07:21)
[2023-10-15] MEDS: LIDOcaine 5% patch TP SCH (07:22)
[2023-10-15] MEDS: vancomycin/NS 1 GM ADD-VANTAGE 250 ML IV SCH ×2 (08:56→20:20)
[2023-10-15] MEDS: ondansetron/PF 4mg/2ml inj IV PRN (10:50)
[2023-10-15] MEDS: isosorbide mononitrate 30mg tab.SR.24H PO SCH (16:20)
[2023-10-15] MEDS ORDERED: MESSAGE TO PHARMACY PO ONE (17:25)
[2023-10-15] MEDS ORDERED: glucagon, human recombinant 1mg kit SUBCUT PRN (17:25)
[2023-10-15] MEDS ORDERED: DEXTROSE 15 GM of carb/4 tabs (each vial/BOTTLE has 4 tablets) PO PRN ×2 (17:25)
[2023-10-15] MEDS ORDERED: insulin Lispro (HumaLOG) vial - multi-dose SQ SCH (17:25)
[2023-10-15] MEDS: insulin glargine (Lantus) pen - multi-dose SQ SCH ×2 (20:15→21:00)
[2023-10-15] MEDS: atorvastatin 10mg tablet PO SCH (20:20)
[2023-10-16] VITALS (18 sets, daily range): BP systolic 109–151; BP diastolic 55–91; PULSE 67–123; RESP 9–26; TEMP 98.3; O2SAT 93–97
[2023-10-16] MEDS: ceFAZolin/D5W- 1GM premix 50 ML IV SCH (00:58)
[2023-10-16 03:12] LABS: BASOPHILS % (AUTO) 0.1 % (0-1); EOSINOPHILS % (AUTO) 0 % (0-6); HEMATOCRIT 33.9 % (42.0-52.0); HEMOGLOBIN 11.4 g/dl (14.0-17.9); LYMPHOCYTES # (AUTO) 0.6 X10'3 (1.1-4.8); LYMPHOCYTES % (AUTO) 2.1 % (21-51); MEAN CORPUSCULAR HEMOGLOBIN 32.4 PG (27.0-31.0); MEAN CORPUSCULAR HGB CONC 33.7 g/dL (33.0-36.5); MEAN CORPUSCULAR VOLUME 96.2 FL (78-98); MEAN PLATELET VOLUME 11.6 FL (7.4-10.4); MONOCYTES # (AUTO) 2.1 X10'3 (0-0.9); MONOCYTES % (AUTO) 6.8 % (2-12); PLATELET COUNT 119 X10'3 (140-440); RED BLOOD COUNT 3.53 X10'6 (4.70-6.10); RED CELL DISTRIBUTION WIDTH 13.8 % (11.5-14.5)
[2023-10-16 03:30] LABS: ALBUMIN 3.1 G/DL (3.4-5.0); ANION GAP 7 (8-16); BLOOD UREA NITROGEN 26 MG/DL (7-18); CALCIUM 8.3 MG/DL (8.5-10.1); CHLORIDE 102 MMOL/L (99-107); CREATININE 1.13 MG/DL (0.60-1.10); GLUCOSE 156 MG/DL (70-104); MAGNESIUM 2.5 MG/DL (1.5-2.4); PHOSPHORUS 3.5 MG/DL (2.3-4.5); POTASSIUM 5.1 MMOL/L (3.5-5.1); SODIUM 136 MMOL/L (135-145); TOTAL CARBON DIOXIDE 26.8 MMOL/L (24-32); eCRCL 59 ML/MIN; eGFR 65 ML/MIN
[2023-10-16 03:31] LABS: WHITE BLOOD COUNT 30.7 X10'3 (4.5-11.0)
[2023-10-16 05:18] LABS: LARGE PLATELETS FEW; PLATELET ESTIMATE DECREASED; TOTAL CELLS COUNTED 100
[2023-10-16] MEDS: ondansetron/PF 4mg/2ml inj IV PRN ×2 (06:43→21:05)
[2023-10-16] MEDS ORDERED: furosemide 40mg/4ml inj IV ONE (07:55)
[2023-10-16] MEDS ORDERED: potassium Cl 40MEQ/270ML bag 250 ML IV PRN (08:15)
[2023-10-16] MEDS ORDERED: potassium Cl 20 mEq SR tablet PO PRN ×2 (08:15)
[2023-10-16] MEDS ORDERED: potassium Cl 40MEQ/1/2NS 520ml 520 ML IV PRN (08:15)
[2023-10-16] MEDS ORDERED: magnesium 2GM in 50ml NS 50 ML IV PRN (08:15)
[2023-10-16] MEDS ORDERED: potassium CL 10mEq/100ml bag 100 ML IV PRN (08:15)
[2023-10-16] MEDS ORDERED: magnesium 4gm in 100ml NS 100 ML IV PRN (08:15)
[2023-10-16] MEDS ORDERED: potassium Cl 20mEq/100mL bag 100 ML IV PRN (08:15)
[2023-10-16] MEDS: aspirin 81mg tab.chew PO SCH (08:31)
[2023-10-16] MEDS: isosorbide mononitrate 30mg tab.SR.24H PO SCH (08:31)
[2023-10-16] MEDS: metoprolol tartrate 12.5mg (1/2 tablet) PO SCH ×2 (08:32→21:01)
[2023-10-16] MEDS: sennosides/docusate sodium tablet PO SCH ×2 (08:33→21:02)
[2023-10-16] MEDS: pantoprazole 40mg Tablet.DR PO SCH (08:34)
[2023-10-16] MEDS: HYDROcodone/acetaminophen 10/325mg tab PO PRN ×3 (08:36→21:03)
[2023-10-16] MEDS: mupirocin 2% nasal ointment 1gm UD NS SCH (08:36)
[2023-10-16] MEDS: LIDOcaine 5% patch TP SCH (08:37)
[2023-10-16] MEDS ORDERED: amiodarone 150mg/dext, iso-os 100 ML IV ONE (12:35)
[2023-10-16] MEDS: amiodarone/D5 360MG/200ML BAG 200 ML IV SCH ×2 (13:06→19:34)
[2023-10-16] MEDS: atorvastatin 10mg tablet PO SCH (21:00)
[2023-10-16] MEDS: insulin glargine (Lantus) pen - multi-dose SQ SCH (21:00)
[2023-10-16] MEDS: magnesium Cl slow-release 64mg tablet PO SCH (21:02)
[2023-10-17] VITALS (16 sets, daily range): BP systolic 115–146; BP diastolic 78–96; PULSE 91–111; RESP 14–20; TEMP 97.5–98.7; O2SAT 91–97
[2023-10-17] MEDS: ondansetron/PF 4mg/2ml inj IV PRN ×3 (03:50→19:31)
[2023-10-17] MEDS: HYDROcodone/acetaminophen 10/325mg tab PO PRN ×4 (03:51→20:14)
[2023-10-17] MEDS: amiodarone/D5 360MG/200ML BAG 200 ML IV SCH ×2 (06:02→16:17)
[2023-10-17 06:29] LABS: ALBUMIN 3.1 G/DL (3.4-5.0); ANION GAP 8 (8-16); BLOOD UREA NITROGEN 29 MG/DL (7-18); BUN/CREATININE RATIO 29.6 (10.0-20.0); CALCIUM 8.5 MG/DL (8.5-10.1); CHLORIDE 102 MMOL/L (99-107); CREATININE 0.98 MG/DL (0.60-1.10); GLUCOSE 128 MG/DL (70-104); MAGNESIUM 2.5 MG/DL (1.5-2.4); POTASSIUM 5.2 MMOL/L (3.5-5.1); SODIUM 139 MMOL/L (135-145); TOTAL CARBON DIOXIDE 29.3 MMOL/L (24-32); eCRCL 67 ML/MIN; eGFR 76 ML/MIN
[2023-10-17 06:33] LABS: BASOPHILS % (AUTO) 0 % (0-1); EOSINOPHILS % (AUTO) 0 % (0-6); HEMATOCRIT 35.6 % (42.0-52.0); HEMOGLOBIN 11.9 g/dl (14.0-17.9); LYMPHOCYTES # (AUTO) 0.8 X10'3 (1.1-4.8); LYMPHOCYTES % (AUTO) 3.9 % (21-51); MEAN CORPUSCULAR HEMOGLOBIN 31.8 PG (27.0-31.0); MEAN CORPUSCULAR HGB CONC 33.3 g/dL (33.0-36.5); MEAN CORPUSCULAR VOLUME 95.6 FL (78-98); MEAN PLATELET VOLUME 11.8 FL (7.4-10.4); MONOCYTES % (AUTO) 9.4 % (2-12); NEUTROPHILS # (AUTO) 18.9 X10'3 (1.8-7.7); NEUTROPHILS % (AUTO) 86.7 % (42-75); PLATELET COUNT 127 X10'3 (140-440); RED BLOOD COUNT 3.72 X10'6 (4.70-6.10); RED CELL DISTRIBUTION WIDTH 13.9 % (11.5-14.5); WHITE BLOOD COUNT 21.8 X10'3 (4.5-11.0)
[2023-10-17] MEDS ORDERED: furosemide 40mg/4ml inj IV ONE (07:45)
[2023-10-17] MEDS ORDERED: metoprolol tartrate 25mg tablet PO SCH (08:00)
[2023-10-17] MEDS: aspirin 81mg tab.chew PO SCH (08:05)
[2023-10-17] MEDS: sennosides/docusate sodium tablet PO SCH ×2 (08:05→20:12)
[2023-10-17] MEDS: isosorbide mononitrate 30mg tab.SR.24H PO SCH (08:06)
[2023-10-17] MEDS: pantoprazole 40mg Tablet.DR PO SCH (08:06)
[2023-10-17] MEDS: magnesium Cl slow-release 64mg tablet PO SCH ×2 (08:06→20:12)
[2023-10-17] MEDS: LIDOcaine 5% patch TP SCH (08:07)
[2023-10-17] MEDS ORDERED: HYDR-3972 PO ×2 (11:11)
[2023-10-17] MEDS: lactose-reduced food (Ensure Enlive) - 237ml bottle PO SCH (18:30)
[2023-10-17] MEDS ORDERED: metoprolol tartrate 50mg tablet PO SCH (20:00)
[2023-10-17] MEDS: insulin glargine (Lantus) pen - multi-dose SQ SCH (20:15)
[2023-10-17] MEDS: atorvastatin 10mg tablet PO SCH (20:15)
[2023-10-18] VITALS (12 sets, daily range): BP systolic 119–163; BP diastolic 81–104; PULSE 64–116; RESP 12–24; TEMP 97.5–98.4; O2SAT 94–98
[2023-10-18] MEDS: ondansetron/PF 4mg/2ml inj IV PRN (03:45)
[2023-10-18] MEDS: HYDROcodone/acetaminophen 10/325mg tab PO PRN (03:45)
[2023-10-18] MEDS: amiodarone/D5 360MG/200ML BAG 200 ML IV SCH (03:48)
[2023-10-18 07:03] LABS: BASOPHILS % (AUTO) 0.2 % (0-1); EOSINOPHILS # (AUTO) 0.1 X10'3 (0-0.9); EOSINOPHILS % (AUTO) 0.5 % (0-6); HEMATOCRIT 37.9 % (42.0-52.0); HEMOGLOBIN 12.6 g/dl (14.0-17.9); LYMPHOCYTES # (AUTO) 1.5 X10'3 (1.1-4.8); LYMPHOCYTES % (AUTO) 10.6 % (21-51); MEAN CORPUSCULAR HEMOGLOBIN 32.3 PG (27.0-31.0); MEAN CORPUSCULAR HGB CONC 33.2 g/dL (33.0-36.5); MEAN CORPUSCULAR VOLUME 97.1 FL (78-98); MEAN PLATELET VOLUME 11.2 FL (7.4-10.4); MONOCYTES # (AUTO) 1.6 X10'3 (0-0.9); MONOCYTES % (AUTO) 11.2 % (2-12); NEUTROPHILS # (AUTO) 11.1 X10'3 (1.8-7.7); NEUTROPHILS % (AUTO) 77.5 % (42-75); PLATELET COUNT 146 X10'3 (140-440); WHITE BLOOD COUNT 14.4 X10'3 (4.5-11.0)
[2023-10-18 07:21] LABS: ANION GAP 5 (8-16); BLOOD UREA NITROGEN 31 MG/DL (7-18); BUN/CREATININE RATIO 29.5 (10.0-20.0); CALCIUM 8.6 MG/DL (8.5-10.1); CHLORIDE 102 MMOL/L (99-107); CREATININE 1.05 MG/DL (0.60-1.10); GLUCOSE 104 MG/DL (70-104); MAGNESIUM 2.3 MG/DL (1.5-2.4); POTASSIUM 4.9 MMOL/L (3.5-5.1); SODIUM 138 MMOL/L (135-145); TOTAL CARBON DIOXIDE 31.4 MMOL/L (24-32); eCRCL 63 ML/MIN; eGFR 70 ML/MIN
[2023-10-18] MEDS ORDERED: benzocaine/menthol oral lozeng 1 EACH BOX MM PRN (07:35)
[2023-10-18] MEDS ORDERED: magnesium citrate 296ml oral solution PO ONE (07:50)
[2023-10-18] MEDS: magnesium Cl slow-release 64mg tablet PO SCH ×2 (08:00→20:41)
[2023-10-18] MEDS: traMADol 50MG tablet PO PRN ×2 (08:16→20:41)
[2023-10-18] MEDS: metoprolol tartrate 25mg tablet PO SCH ×2 (08:18→20:00)
[2023-10-18] MEDS: sennosides/docusate sodium tablet PO SCH ×2 (08:19→20:00)
[2023-10-18] MEDS: aspirin 81mg tab.chew PO SCH (08:19)
[2023-10-18] MEDS: pantoprazole 40mg Tablet.DR PO SCH (08:19)
[2023-10-18] MEDS: isosorbide mononitrate 30mg tab.SR.24H PO SCH (08:19)
[2023-10-18] MEDS: LIDOcaine 5% patch TP SCH (08:20)
[2023-10-18] MEDS: lactose-reduced food (Ensure Enlive) - 237ml bottle PO SCH ×4 (08:23→19:06)
[2023-10-18] MEDS ORDERED: amiodarone 200mg tablet PO SCH (08:30)
[2023-10-18] MEDS ORDERED: digoxin 250mcg/ml 2ml ampule IV ONE ×2 (10:30→16:30)
[2023-10-18] MEDS: amiodarone 200mg tablet PO SCH ×2 (10:46→20:41)
[2023-10-18 11:41] LABS: PRO BRAIN NATRIURETIC PEPTIDE 5175 PG/ML (0-125)
[2023-10-18] MEDS ORDERED: TRAM50TA2 PO (12:23)
[2023-10-18] MEDS: insulin glargine (Lantus) pen - multi-dose SQ SCH (20:45)
[2023-10-18] MEDS ORDERED: atorvastatin 20mg tablet PO SCH (21:00)
[2023-10-19 04:00] VITALS: BP 134/80; PULSE 59; RESP 18; TEMP 98.5; O2SAT 95
[2023-10-19 06:00] VITALS: BP 113/75; PULSE 65; RESP 19; TEMP 98.2; O2SAT 94
[2023-10-19 07:15] VITALS: RESP 18; O2SAT 94
[2023-10-19 07:26] LABS: BASOPHILS % (AUTO) 0.2 % (0-1); EOSINOPHILS # (AUTO) 0.2 X10'3 (0-0.9); EOSINOPHILS % (AUTO) 1.5 % (0-6); HEMATOCRIT 39.8 % (42.0-52.0); LYMPHOCYTES # (AUTO) 1.3 X10'3 (1.1-4.8); LYMPHOCYTES % (AUTO) 10.3 % (21-51); MEAN CORPUSCULAR HEMOGLOBIN 31.8 PG (27.0-31.0); MEAN CORPUSCULAR HGB CONC 32.8 g/dL (33.0-36.5); MEAN CORPUSCULAR VOLUME 96.8 FL (78-98); MEAN PLATELET VOLUME 10.7 FL (7.4-10.4); MONOCYTES # (AUTO) 1.4 X10'3 (0-0.9); NEUTROPHILS # (AUTO) 9.5 X10'3 (1.8-7.7); PLATELET COUNT 171 X10'3 (140-440); RED BLOOD COUNT 4.11 X10'6 (4.70-6.10); RED CELL DISTRIBUTION WIDTH 13.9 % (11.5-14.5); WHITE BLOOD COUNT 12.3 X10'3 (4.5-11.0)
[2023-10-19 07:40] LABS: ALBUMIN 2.9 G/DL (3.4-5.0); ANION GAP 6 (8-16); BLOOD UREA NITROGEN 27 MG/DL (7-18); BUN/CREATININE RATIO 27.8 (10.0-20.0); CALCIUM 8.2 MG/DL (8.5-10.1); CHLORIDE 102 MMOL/L (99-107); CREATININE 0.97 MG/DL (0.60-1.10); GLUCOSE 102 MG/DL (70-104); MAGNESIUM 2.1 MG/DL (1.5-2.4); POTASSIUM 4.3 MMOL/L (3.5-5.1); SODIUM 138 MMOL/L (135-145); TOTAL CARBON DIOXIDE 29.6 MMOL/L (24-32); eCRCL 68 ML/MIN; eGFR 77 ML/MIN
[2023-10-19] MEDS: LIDOcaine 5% patch TP SCH (08:00)
[2023-10-19] MEDS: magnesium Cl slow-release 64mg tablet PO SCH (08:00)
[2023-10-19] MEDS: sennosides/docusate sodium tablet PO SCH (08:00)
[2023-10-19] MEDS: aspirin 81mg tab.chew PO SCH (09:23)
[2023-10-19] MEDS: isosorbide mononitrate 30mg tab.SR.24H PO SCH (09:24)
[2023-10-19] MEDS: amiodarone 200mg tablet PO SCH (09:25)
[2023-10-19 09:26] VITALS: RESP 16
[2023-10-19] MEDS: traMADol 50MG tablet PO PRN (09:26)
[2023-10-19] MEDS: pantoprazole 40mg Tablet.DR PO SCH (09:27)
[2023-10-19] MEDS ORDERED: AMI200T PO (11:42)
[2023-10-20] MEDS ORDERED: METO50TA7 PO (10:07)
== END 2023-10-19 12:36 | disposition home or self-care (01) | DRG 236 ==
LOC: PAS IN 05:34 → CICU 2S 11:47 → PCU 3S 10-16 11:19
PROVIDERS: ADMIT Thoracic Surgery (Cardiothoracic Vascular Surgery); ATTEND Thoracic Surgery (Cardiothoracic Vascular Surgery)
PROC: 02100Z8 Bypass Coronary Artery, One Artery from Right Internal Mammary, Open Approach (ICD-10-PCS; 2023-10-14)
PROC: 021 Heart and Great Vessels, Bypass (ICD-10-PCS; 2023-10-14)
PROC: 03BC4ZZ Excision of Left Radial Artery, Percutaneous Endoscopic Approach (ICD-10-PCS; 2023-10-14)
PROC: 5A1221Z Performance of Cardiac Output, Continuous (ICD-10-PCS; 2023-10-14)
PROC: B24BZZ4 Ultrasonography of Heart with Aorta, Transesophageal (ICD-10-PCS; 2023-10-14)
PROC: 05HY33Z Insertion of Infusion Device into Upper Vein, Percutaneous Approach (ICD-10-PCS; 2023-10-14)
PROC: 02100Z9 Bypass Coronary Artery, One Artery from Left Internal Mammary, Open Approach (ICD-10-PCS; principal; 2023-10-14 07:51)
DX: I25.10 Atherosclerotic heart disease of native coronary artery without angina pectoris (principal); I48.0 Paroxysmal atrial fibrillation; I10 Essential (primary) hypertension; E78.5 Hyperlipidemia, unspecified; R00.1 Bradycardia, unspecified; E66.9 Obesity, unspecified; I25.2 Old myocardial infarction; Z95.5 Presence of coronary angioplasty implant and graft; Z68.30 Body mass index [BMI] 30.0-30.9, adult
CPT/HCPCS: 93312; 93325; Z7506; Z7508; 36415; 36600; 71045; 71046; 80048; 80053; 81001; 82330; 82435; 82803; 82947; 82948; 83036; 83735; 83880; 84100; 84132; 84295; 85007; 85008; 85018; 85025; 85347; 85610; 85730; 86885; 86900; 86901; 86920; 87081; 87088; 93005; 93880; 93970; 94002; 94664; 94760; 97161; 97530; A4615; A4618; A6213; A6258; A6446; A6449; A7000; A7048; C1751; G0378; J0171; J0282; J0690; J1160; J1644; J1815; J1885; J1940; J2060; J2150; J2250; J2270; J2405; J2440; J2704; J2720; J2765; J2930; J3370; J3475; J3480; J3490; J7030; J7040; J7050; J7120; P9045; P9047; S0020